=== PATIENT | female | born 1985 | race Caucasian/White ===

== ENCOUNTER 2019-04-27 11:45 | Inpatient (IN) | payer OTHER ==
[2019-04-27] MEDS ORDERED: LACTATED RINGERS 1,000 ML ONE (11:59)
[2019-04-27] MEDS ORDERED: AMPICILLIN/NS 2 GM/100 ML 2 GM/100 ML BAG IV ONE ×2 (11:59→12:30)
[2019-04-27] MEDS ORDERED: PITOCin/NS 20 UNIT/1000ML DRIP 20 UNITS/1,000 ML BAG IV SCH (12:00)
[2019-04-27] MEDS ORDERED: LACTATED RINGERS 1,000 ML IV SCH (12:00)
[2019-04-27 12:18] LABS: Hematocrit 36.2 % (30.3-42.9); Hemoglobin 12.6 gm/dl (10.1-14.3); Mean Corpuscular HGB Conc 35 % (30-34); Mean Corpuscular Volume 90 fl (79-97); Platelet Count 140 K/mm3 (140-440); Red Blood Count 4.01 M/mm3 (3.65-5.03); Red Cell Distribution Width 15.3 % (13.2-15.2)
[2019-04-27 12:19] LABS: Basophils # (Auto) 0.1 K/mm3 (0.0-0.1); Basophils % (Auto) 1.1 % (0.0-1.8); Eosinophils % (Auto) 0.8 % (0.0-4.3); Hematocrit 37.5 % (30.3-42.9); Hemoglobin 12.8 gm/dl (10.1-14.3); Lymphocytes # (Auto) 1.9 K/mm3 (1.2-5.4); Lymphocytes % (Auto) 33.7 % (13.4-35.0); Mean Corpuscular HGB Conc 34 % (30-34); Mean Corpuscular Volume 91 fl (79-97); Monocytes # (Auto) 0.5 K/mm3 (0.0-0.8); Monocytes % (Auto) 8.8 % (0.0-7.3); Platelet Count 142 K/mm3 (140-440); Red Blood Count 4.13 M/mm3 (3.65-5.03); Red Cell Distribution Width 15.3 % (13.2-15.2)
[2019-04-27] MEDS ORDERED: BRETHINE IVP PRN (12:30)
[2019-04-27] MEDS ORDERED: STADOL IV PRN (12:30)
[2019-04-27] MEDS ORDERED: BRETHINE SUB-Q PRN (12:30)
[2019-04-27] MEDS ORDERED: XYLOCAINE 2% INFILTRATI NR (12:30)
[2019-04-27] MEDS ORDERED: ZOFRAN IV PRN ×2 (12:30→18:39)
[2019-04-27] MEDS ORDERED: MINERAL OIL PO PRN (12:30)
[2019-04-27] MEDS ORDERED: SUBLIMAZE IV PRN (12:30)
[2019-04-27 14:10] LABS: Hepatitis C Virus Antibody Nonreactive (NonReactive)
[2019-04-27 14:51] LABS: Bilirubin,Urine NEG (Negative); Blood,Urine SM (Negative); Color,Urine Yellow (Yellow); Urobilinogen,Urine < 2.0 mg/dL (<2.0)
[2019-04-27 15:03] LABS: Amphetamine Screen,Urine PRESUMPTIVE NEGATIVE; Benzodiazepines Screen,Urine PRESUMPTIVE NEGATIVE; Cannabinoid Screen,Urine PRESUMPTIVE NEGATIVE; Cocaine Screen,Urine PRESUMPTIVE NEGATIVE; Methadone Screen,Urine PRESUMPTIVE NEGATIVE; Opiate Screen,Urine PRESUMPTIVE NEGATIVE
[2019-04-27] MEDS ORDERED: AMPICILLIN/NS 1 GM/50 ML 1 GM/50 ML BAG IV SCH (16:00)
--- NOTE | 2019-04-27 17:43 | History and Physical Report ---
History of Present Illness Date of examination: 04/27/19 Date of admission: 04/27/19 11:45 Chief complaint: Painful contractions History of present illness: 34 yo, , who received care at [facility] until January 2019, then stopped secondary to financial reasons. She presents to [facility] triage with reports of regular painful ctxs. She has no records on hand. Unable to contact clinic to request records. Pt reports that her KAILYN is 04/29/19 @ 39.5 wks gestation. Reports + FM. Denies any LOF or VB. She reports that she has GDM currently taking Metformin. Past History Past Medical History: other (GDM) Past Surgical History: no surgical history Family/Genetic History: none Social history: , lives with family, full code. denies: smoking, alcohol abuse, prescription drug abuse, IV drug use - Obstetrical History Expected Date of Delivery: 04/29/19 Actual Gestation: 39 Week(s) 5 Day(s) : 6 Para: 2 Hx # Term Pregnancies: 2 Number of Pregnancies: 0 Spontaneous Abortions: 3 Induced : 0 Number of Living Children: 2 Medications and Allergies Allergies Allergy/AdvReac Type Severity Reaction Status Date / Time No Known Allergies Allergy Verified 04/27/19 12:00 Home Medications Medication Instructions Recorded Confirmed Last Taken Type Vit-Fe Fumar-FA [ 1 tab PO QDAY 04/27/19 04/27/19 04/26/19 09:00 History Vitamin] 1 metFORMIN 250 mg PO TID 04/27/19 04/27/19 04/26/19 17:00 History 1 Active Meds: Active Medications Butorphanol Tartrate (Stadol) 2 mg IV Q2H PRN PRN Reason: Pain , Severe (7-10) Last Admin: 04/27/19 12:49 Dose: 2 mg Documented by: Ephedrine Sulfate (Ephedrine Sulfate) 10 mg IV Q2M PRN PRN Reason: Hypotension Fentanyl (Sublimaze) 100 mcg IV Q2H PRN PRN Reason: Labor Pain Oxytocin/Sodium Chloride (Pitocin/Ns 20 Unit/1000ml Drip) 20 units in 1,000 mls @ 125 mls/hr IV DIRECT VINAY Lactated Ringer's (Lactated Ringers) 1,000 mls @ 125 mls/hr IV DIRECT VINAY Last Admin: 04/27/19 12:00 Dose: 125 mls/hr Documented by: Ampicillin Sodium (Ampicillin/Ns 1 Gm/50 Ml) 1 gm in 50 mls @ 100 mls/hr IV Q4H VINAY; Protocol Last Admin: 04/27/19 16:22 Dose: 100 mls/hr Documented by: Lidocaine (Xylocaine 2%) 20 ml INFILTRATI ONCE NR Stop: 04/28/19 12:29 Mineral Oil (Mineral Oil) 30 ml PO QHS PRN PRN Reason: Constipation Ondansetron HCl (Zofran) 4 mg IV Q8H PRN PRN Reason: Nausea And Vomiting Last Admin: 04/27/19 12:55 Dose: 4 mg Documented by: Terbutaline Sulfate (Brethine) 0.25 mg SUB-Q ONCE PRN PRN Reason: Hyperstimulation/Hypertonicity Terbutaline Sulfate (Brethine) 0.25 mg IVP ONCE PRN PRN Reason: Hyperstimulation/Hypertonicity Review of Systems All systems: negative Genitourinary: contractions, no vaginal bleeding, no leakage of fluid - Vital Signs Vital signs: Vital Signs Temp Pulse Resp BP 99.3 F 80 22 179/97 04/27/19 12:00 04/27/19 12:00 04/27/19 12:00 04/27/19 12:00 Temp Pulse Resp BP Pulse Ox 98.6 F 69 12 171/95 04/27/19 16:50 04/27/19 16:49 04/27/19 16:50 04/27/19 16:49 - Physical Exam Breasts: Positive: deferred Cardiovascular: Regular rate Lungs: Positive: Normal air movement Abdomen: Positive: other (gravid) Genitourinary (Female): Positive: normal external genitalia Uterus: Positive: other (S=D) Extremities: Positive: normal Deep Tendon Reflex Grade: Normal +2 - Obstetrical FHR: category 1 Uterine Contraction Monitor Mode: External Cervical Dilatation: 5 Cervical Effacement Percentage: 70 station: 3 Uterine Contraction Pattern: Irregular Uterine Tone Measurement Phase: Resting Uterine Contraction Intensity: Moderate Results Result Diagrams: 04/27/19 11:45 04/27/19 13:36 Abnormal lab results 04/27/19 04/27/19 04/27/19 Range/Units 11:45 11:45 13:36 MCHC 35 H (30-34) % RDW 15.3 H 15.3 H (13.2-15.2) % [place] % (Auto) 8.8 H (0.0-7.3) % Creatinine 0.4 L (0.7-1.2) mg/dL All other labs normal. Assessment and Plan - Patient Problems (1) 39 weeks gestation of Current Visit: Yes Status: Acute Plan to address problem: Admit to L & D GBS prophylaxis Blood glucose monitoring q 4 hrs Anticipate (2) Gestational diabetes mellitus (GDM) affecting Current Visit: Yes Status: Acute
--- NOTE | 2019-04-27 18:08 | Progress Note ---
Assessment and Plan - Patient Problems (1) 39 weeks gestation of Current Visit: Yes Status: Acute Plan to address problem: Continue routine L & D orders Continue GBS prophylaxis AROM - large amt of clear fluids Blood glucose monitoring q 4 hrs Anticipate (2) Gestational diabetes mellitus (GDM) affecting Current Visit: Yes Status: Acute Subjective - Subjective Date of service: 04/27/19 Principal diagnosis: Active labor; 39 wks gestation; GDM Interval history: 34 yo, , who received care at [facility] until January 2019, then stopped secondary to financial reasons. She presents to [facility] triage with reports of regular painful ctxs. She has no records on hand. Unable to contact clinic to request records. Pt reports that her KAILYN is 04/29/19 @ 39.5 wks gestation. Reports + FM. Denies any LOF or VB. She reports that she has GDM currently taking Metformin. Patient reports: movement normal, contractions, no vaginal bleeding Objective - Vital Signs Vital Signs: Vital Signs - 12hr 04/27/19 04/27/19 04/27/19 12:00 12:49 12:55 Temperature 99.3 F Pulse Rate 80 83 Respiratory 22 22 Rate Blood Pressure 154/91 Blood Pressure 179/97 [Left] 04/27/19 04/27/19 04/27/19 13:49 14:32 16:49 Temperature Pulse Rate 72 69 Respiratory 22 Rate Blood Pressure 146/85 171/95 Blood Pressure [Left] 04/27/19 04/27/19 04/27/19 16:50 17:40 17:47 Temperature 98.6 F 98.2 F Pulse Rate 87 Respiratory 12 Rate Blood Pressure 140/83 Blood Pressure [Left] - Exam FHR: category 1 Uterine Contraction Monitor Mode: External Cervical Dilatation: 7 Cervical Effacement Percentage: 80 station: 0 Uterine Contraction Pattern: Irregular Uterine Tone Measurement Phase: Resting Uterine Contraction Intensity: Strong/Firm - Labs Labs: Abnormal Labs 04/27/19 04/27/19 04/27/19 11:45 11:45 13:36 MCHC 35 H RDW 15.3 H 15.3 H [place] % (Auto) 8.8 H Creatinine 0.4 L Laboratory Results - last 24 hr 04/27/19 04/27/19 04/27/19 11:45 11:45 11:45 WBC 5.5 RBC 4.13 Hgb 12.8 Hct 37.5 MCV 91 MCH 31 MCHC 34 RDW 15.3 H Plt Count 142 Lymph % (Auto) 33.7 [place] % (Auto) 8.8 H Eos % (Auto) 0.8 Baso % (Auto) 1.1 Lymph # 1.9 [place] # 0.5 Eos # 0.0 Baso # 0.1 Seg Neutrophils % 55.6 Seg Neutrophils # 3.1 Creatinine Estimated GFR POC Glucose Uric Acid AST ALT Lactate Dehydrogenase Urine Color Urine Turbidity Urine pH Ur Specific [place] Urine Protein Urine Glucose (UA) Urine Ketones Urine Blood Urine Nitrite Urine Bilirubin Urine Urobilinogen Ur Leukocyte Esterase Urine WBC (Auto) Urine RBC (Auto) U Epithel Cells (Auto) Urine Opiates Screen Urine Methadone Screen Ur Barbiturates Screen Ur Phencyclidine Scrn Ur Amphetamines Screen U Benzodiazepines Scrn Urine Cocaine Screen U Marijuana (THC) Screen Drugs of Abuse Note Hep Bs Antigen Non-reactive Hepatitis C Antibody Nonreactive HIV 1&2 Antibody Rapid HIV P24 Antigen Rubella IgG Antibody Immune Blood Type Antibody Screen 04/27/19 04/27/19 04/27/19 11:45 11:45 12:02 WBC 5.3 RBC 4.01 Hgb 12.6 Hct 36.2 MCV 90 MCH 31 MCHC 35 H RDW 15.3 H Plt Count 140 Lymph % (Auto) [place] % (Auto) Eos % (Auto) Baso % (Auto) Lymph # [place] # Eos # Baso # Seg Neutrophils % Seg Neutrophils # Creatinine Estimated GFR POC Glucose Uric Acid AST ALT 10 Lactate Dehydrogenase Urine Color Urine Turbidity Urine pH Ur Specific [place] Urine Protein Urine Glucose (UA) Urine Ketones Urine Blood Urine Nitrite Urine Bilirubin Urine Urobilinogen Ur Leukocyte Esterase Urine WBC (Auto) Urine RBC (Auto) U Epithel Cells (Auto) Urine Opiates Screen Urine Methadone Screen Ur Barbiturates Screen Ur Phencyclidine Scrn Ur Amphetamines Screen U Benzodiazepines Scrn Urine Cocaine Screen U Marijuana (THC) Screen Drugs of Abuse Note Hep Bs Antigen Hepatitis C Antibody HIV 1&2 Antibody Rapid Non react HIV P24 Antigen Non react Rubella IgG Antibody Blood Type B POSITIVE Antibody Screen Negative 04/27/19 04/27/19 04/27/19 13:19 13:36 14:35 WBC RBC Hgb Hct MCV MCH MCHC RDW Plt Count Lymph % (Auto) [place] % (Auto) Eos % (Auto) Baso % (Auto) Lymph # [place] # Eos # Baso # Seg Neutrophils % Seg Neutrophils # Creatinine 0.4 L Estimated GFR > 60 POC Glucose 92 Uric Acid 4.0 AST 20 ALT Lactate Dehydrogenase 169 Urine Color Urine Turbidity Urine pH Ur Specific [place] Urine Protein Urine Glucose (UA) Urine Ketones Urine Blood Urine Nitrite Urine Bilirubin Urine Urobilinogen Ur Leukocyte Esterase Urine WBC (Auto) Urine RBC (Auto) U Epithel Cells (Auto) Urine Opiates Screen Presumptive negative Urine Methadone Screen Presumptive negative Ur Barbiturates Screen Presumptive negative Ur Phencyclidine Scrn Presumptive negative Ur Amphetamines Screen Presumptive negative U Benzodiazepines Scrn Presumptive negative Urine Cocaine Screen Presumptive negative U Marijuana (THC) Screen Presumptive negative Drugs of Abuse Note Disclamer Hep Bs Antigen Hepatitis C Antibody HIV 1&2 Antibody Rapid HIV P24 Antigen Rubella IgG Antibody Blood Type Antibody Screen 04/27/19 04/27/19 14:35 17:48 WBC RBC Hgb Hct MCV MCH MCHC RDW Plt Count Lymph % (Auto) [place] % (Auto) Eos % (Auto) Baso % (Auto) Lymph # [place] # Eos # Baso # Seg Neutrophils % Seg Neutrophils # Creatinine Estimated GFR POC Glucose 81 Uric Acid AST ALT Lactate Dehydrogenase Urine Color Yellow Urine Turbidity Clear Urine pH 6.0 Ur Specific [place] 1.017 Urine Protein 100 mg/dl Urine Glucose (UA) Neg Urine Ketones Tr Urine Blood Sm Urine Nitrite Neg Urine Bilirubin Neg Urine Urobilinogen < 2.0 Ur Leukocyte Esterase Neg Urine WBC (Auto) 6.0 Urine RBC (Auto) 1.0 U Epithel Cells (Auto) < 1.0 Urine Opiates Screen Urine Methadone Screen Ur Barbiturates Screen Ur Phencyclidine Scrn Ur Amphetamines Screen U Benzodiazepines Scrn Urine Cocaine Screen U Marijuana (THC) Screen Drugs of Abuse Note Hep Bs Antigen Hepatitis C Antibody HIV 1&2 Antibody Rapid HIV P24 Antigen Rubella IgG Antibody Blood Type Antibody Screen
[2019-04-27] MEDS ORDERED: LANSINOH TP PRN (18:39)
[2019-04-27] MEDS ORDERED: PHENERGAN PO PRN (18:39)
[2019-04-27] MEDS ORDERED: MILK OF MAGNESIA PO PRN (18:39)
[2019-04-27] MEDS ORDERED: BENADRYL PO PRN (18:39)
[2019-04-27] MEDS ORDERED: TUCKS PAD TP PRN (18:39)
[2019-04-27] MEDS ORDERED: DULCOLAX PR PRN (18:39)
[2019-04-27] MEDS ORDERED: PERCOCET 5/325 PO PRN (18:39)
--- NOTE | 2019-04-27 18:50 | Procedure Note ---
OB Delivery Note - Delivery Date of Delivery: 04/27/19 (1815) Surgeon: ANDER RAMON (CNM) Estimated blood loss: 200cc - Vaginal Delivery presentation: vertex Delivery position: OA (JOSE ALEJANDRO) Delivery induction: none Delivery augmentation: rupture of membranes Delivery monitor: external FHT, external uterine Route of delivery: Delivery placenta: spontaneous (1823) Delivery cord: 3 umbilical vessels Episiotomy: none Delivery laceration: 1st degree (perineum with no repair, hemostasis maintained) Anesthesia: none Delivery comments: of viable , cried with minimal stimulation via drying, placed directly to maternal abdomen. Cord double clamped and cut by FOB after cessation of pulsation. Placenta delivered spontaneously, rascon, disposed per hospital policy. Perineum with first degree laceration, no repair required, hemostasis maintained. Fundus firm @ U. Mother and baby safe, stable and bonding well. - A at 1 minute: 8 at 5 minutes: 9 Infant Gender: Female (Weight: 3736 gms (8lbs 4 ozs), 19.5 inches)
[2019-04-27] MEDS ORDERED: SODIUM CHLORIDE FLUSH SYRINGE 10 ML IV NR (19:00)
[2019-04-27] MEDS: IBUPROFEN PO SCH (23:45)
[2019-04-28] MEDS: IBUPROFEN PO SCH ×3 (05:41→21:46)
[2019-04-28 06:10] LABS: Hematocrit 30.9 % (30.3-42.9); Hemoglobin 10.4 gm/dl (10.1-14.3)
[2019-04-28] MEDS: SENOKOT S PO SCH ×2 (08:42→21:47)
--- NOTE | 2019-04-28 09:47 | Ultrasound Report ---
OBSTETRIC ULTRASOUND INDICATION: Follow-up, assess position COMPARISON: No prior relevant imaging studies are available for comparison. TECHNIQUE: Transabdominal imaging was performed. FINDINGS: Single viable intrauterine is identified. lie: Cephalic. Heart rate: 138 bpm. measurements are as follows: Biparietal diameter 8.5 cm, 34 weeks 1 day Head circumference 32.1 cm, 36 weeks 1 day Abdominal circumference 36.4 cm, 40 weeks 2 days Femur length 7.4 cm, 37 weeks 5 days Estimated birthweight at this time is 3495 g. CONCLUSION: Single viable intrauterine currently in cephalicposition with estimated birthweight a t this time of 3495 g. Of note, abdominal circumference is measuring 3-4 weeks greater than head circ umference. This could impact delivery planning. Signer Name: Fish Castellanos MD Signed: 04/28/2019 9:42 AM Workstation Name: [id number]
--- NOTE | 2019-04-28 11:31 | Progress Note ---
Assessment and Plan A: PPD#1 s/p GDM; BS well controlled Stable P: Continue PP orders Anticipate discharge home in 24-48 hrs Subjective - Subjective Date of service: 04/28/19 Principal diagnosis: PPD#1 s/p , GDM Interval history: See H&P and delivery note Patient reports: appetite normal, voiding normally, pain well controlled, flatus, ambulating normally [place]: doing well, nursing well (pt reports flat nipples and questions use of nipple shield. Upom entering room baby was latched well. Encouragement given. will continue to monitor.) Objective - Vital Signs Latest vital signs: Vital Signs Temp Pulse Resp BP BP Pulse Ox 04/28/19 08:14 97.9 F 74 18 128/84 97 04/28/19 01:46 98.0 F 89 18 143/92 98 04/27/19 20:29 99.4 F 88 18 144/80 98 04/27/19 19:32 86 158/77 04/27/19 19:16 94 H 134/73 04/27/19 19:01 88 144/80 04/27/19 18:51 91 H 137/79 04/27/19 18:45 99.5 F 14 04/27/19 18:32 93 H 151/99 04/27/19 17:47 87 140/83 04/27/19 17:40 98.2 F 04/27/19 16:50 98.6 F 12 04/27/19 16:49 69 171/95 04/27/19 14:32 72 146/85 04/27/19 13:49 22 04/27/19 12:55 83 154/91 04/27/19 12:49 22 04/27/19 12:00 99.3 F 80 22 179/97 Intake and Output 04/27/19 04/28/19 04/28/19 23:59 07:59 15:59 Output Total 300 650 Balance -300 -650 Output: Urine 300 650 Void 300 650 Other: Total, Output Amount 300 400 # Voids Void 1 1 Estimated Blood Loss 200 - Exam Breasts: Present: normal, Cardiovascular: Present: Regular rate, Normal S1, Normal S2, No murmurs Lungs: Present: Clear to auscultation, Normal air movement Abdomen: Present: normal appearance, soft, normal bowel sounds. Absent: distention Vulva: both: laceration/episiotomy (1st, approximated) Uterus: Present: firm, fundal height at umbilicus Extremities: Present: normal Deep Tendon Reflex Grade: Normal +2 - Labs Labs: Abnormal lab results 04/27/19 04/27/19 04/27/19 Range/Units 11:45 11:45 13:36 MCHC 35 H (30-34) % RDW 15.3 H 15.3 H (13.2-15.2) % [place] % (Auto) 8.8 H (0.0-7.3) % Creatinine 0.4 L (0.7-1.2) mg/dL
--- NOTE | 2019-04-28 11:34 | Discharge Summary ---
Providers - Providers Date of Admission: 04/27/19 11:45 Date of discharge: 04/29/19 Attending physician: JÚNIOR COKER MD Primary care physician: JÚNIOR COKER MD Hospitalization Reason for admission: active labor Delivery: Procedure details: See H&P and delivery note Episiotomy: none Laceration: 1st degree Other procedures: none complications: none Discharge diagnosis: IUP at term delivered Joseph baby: female Condition at discharge: Good Disposition: DC-01 TO HOME OR SELFCARE Plan - Provider Discharge Summary Activity: routine, no sex for 6 weeks, no heavy lifting 4 weeks, no strenuous exercise Diet: routine Instructions: routine Additional instructions: [] Smoking cessation referral if applicable(refer to patient education folder for contact #) [] Refer to [facility] Booklet Call your doctor immediately for: * Fever > 100.5 * Heavy vaginal bleeding ( >1 pad per hour) * Severe persistent headache * Shortness of breath * Reddened, hot, painful area to leg or breast * Drainage or odor from incision. * Keep incision clean and dry at all times and follow doctor's instructions regarding bathing/showering - Follow up plan Follow up: JÚNIOR COKER MD [Primary Care Provider] - 6 Weeks
[2019-04-28] MEDS: PRENATAL VITAMIN PO SCH (12:37)
[2019-04-28] MEDS: GLUCOPHAGE PO SCH (17:45)
[2019-04-29] MEDS: IBUPROFEN PO SCH ×2 (03:43→13:21)
[2019-04-29] MEDS ORDERED: GLUCOPHAGE PO SCH (08:00)
[2019-04-29] MEDS: GLUCOPHAGE PO SCH (09:04)
[2019-04-29 10:14] VITALS: BP 140/81
[2019-04-29] MEDS: PRENATAL VITAMIN PO SCH (11:04)
== END 2019-04-29 14:00 | disposition home or self-care (01) | DRG 807 ==
LOC: LD 11:45 → OB 20:37
PROVIDERS: ADMIT Obstetrics & Gynecology; ATTEND Obstetrics & Gynecology
PROC: 10E0XZZ Delivery of Products of Conception, External Approach (ICD-10-PCS; principal; 2019-04-27)
PROC: 10907ZC Drainage of Amniotic Fluid, Therapeutic from Products of Conception, Via Natural or Artificial Opening (ICD-10-PCS; 2019-04-27)
DX: O24.429 Gestational diabetes mellitus in childbirth, unspecified control (principal); Z37.0 Single live birth; O70.0 First degree perineal laceration during delivery; Z3A.39 39 weeks gestation of pregnancy
CPT/HCPCS: 36415; 76816; 80307; 81001; 82565; 82962; 83615; 84450; 84460; 84550; 85014; 85018; 85025; 85027; 86592; 86706; 86762; 86803; 86850; 86900; 86901; 87806; G0378; J0290; J0595; J2405; J2590; J3010; J7120